=== PATIENT | female | born 1950 | race Caucasian/White ===

== ENCOUNTER 2018-11-25 11:23 | Emergency (ER) | payer OTHER ==
[2018-11-25 11:30] VITALS: BMI 34.3
--- NOTE | 2018-11-25 11:30 | PDOC ---
Rapid Medical Evaluation Medical Evaluation: I have performed a brief in-person evaluation of this patient. The patient presents with a chief complaint of: s/p tripped and fell doing down stairs; fell down 4 steps; +head strike, no LOC; +bloody nose at the time; denies vomiting, visual/gait changes; patient is not on any blood thinners Pertinent physical exam findings: +hematoma to R forehead; bruising above R eye and below L eye, FROM, no nystagmus, no pain on eye movement; denies diplopia; no c-spine tenderness; +small bruise L thumb I have ordered the following: CT head/facial; xray The patient will proceed to the ED for further evaluation. 11/25/18 11:25
[2018-11-25] MEDS ORDERED: ACETAMINOPHEN 500 MG TABLET (FP) PO ONE (12:01)
--- NOTE | 2018-11-25 12:02 | PDOC ---
History of Present Illness - General Chief Complaint: Injury Stated Complaint: FALL Time Seen by Provider: 11/25/18 11:25 History Source: Patient Exam Limitations: No Limitations - History of Present Illness Initial Comments: 11/25/18 12:15 CHIEF COMPLAINT: Fall HISTORY OF PRESENT ILLNESS: This is a 68-year-old female with a history of NIDDM , HTN, and HLD on no AC meds who presents with her daughters following a fall down 4 steps with head trauma. She reports that she missed a step and fell and denies dizziness or any other prodrome prior to the fall. She denies LOC. She reports some headache, facial pain, and blurred vision when looking upwards. She has left thumb pain. She denies neck pain, back pain, nausea/vomiting, or any other symptoms. Vital signs on arrival are notable for BP 178/89. Surgical history: Left Colles' fracture s/p 8 surgeries REVIEW OF SYSTEMS: GENERAL/CONSTITUTIONAL: No fever or chills. No weakness. No weight change. HEAD, EYES, EARS, NOSE AND THROAT: Blurred vision right eye only when looking up . No ear pain or discharge. No sore throat. CARDIOVASCULAR: No chest pain or palpitations. RESPIRATORY: No cough, wheezing, or shortness of breath. GASTROINTESTINAL: No nausea, vomiting, diarrhea, or constipation. GENITOURINARY: See HPI. MUSCULOSKELETAL: Left thumb pain. No neck or back pain. SKIN: No rash or easy bruising. NEUROLOGIC: Headache. No vertigo, loss of consciousness, or loss of sensation. PSYCHIATRIC: No depression or anxiety. ENDOCRINE: No increased thirst. No abnormal weight change. HEMATOLOGIC/LYMPHATIC: No anemia, easy bleeding, or history of blood clots. No anticoagulant use. ALLERGIC/IMMUNOLOGIC: No hives or skin allergy. No latex allergy. PHYSICAL EXAM: GENERAL: The patient is awake, alert, and fully oriented, in no acute distress. HEAD: Hematoma and swelling right frontal scalp. Hematoma and swelling right supraorbital ridge, some tenderness inferior orbital bone. Small ecchymosis below left eye. ENT: Pupils equal, round and reactive to light, Extraocular movements intact; no ophthalmoplegia. Neck supple. LUNGS: Clear to auscultation bilaterally. Normal excursion. No respiratory distress or use of accessory muscles. CV: RRR, S1/S2, no MRG. Cap refill < 2 sec. ABDOMEN: Soft, non-tender, non-distended. EXTREMITIES: Normal range of motion, no edema. NEUROLOGICAL: Normal speech, normal gait with walker. CN II-XII grossly intact. PSYCH: Normal mood, normal affect. SKIN: Warm, dry, normal turgor, no rashes or lesions noted. Past History - Past Medical History Allergies/Adverse Reactions: Allergies Allergy/AdvReac Type Severity Reaction Status Date / Time No Known Allergies Allergy Verified 11/25/18 11:26 Home Medications: Ambulatory Orders Atorvastatin Calcium 10 mg PO DAILY 11/25/18 Buspirone HCl 15 mg PO DAILY 11/25/18 Gabapentin 300 mg PO DAILY 11/25/18 Glimepiride 1 mg PO DAILY 11/25/18 Metformin HCl [Glucophage] 1,000 mg PO DAILY 11/25/18 Ramipril 2.5 mg PO DAILY 11/25/18 Sertraline HCl 100 mg PO DAILY 11/25/18 Spironolactone 25 mg PO DAILY 11/25/18 COPD: No Diabetes: Yes (NIDM) HTN: Yes Hypercholesterolemia: Yes - Surgical History Cholecystectomy: Yes - Immunization History Immunization Up to Date: Yes - Suicide/Smoking/Psychosocial Hx Smoking History: Never smoked Information on smoking cessation initiated: No Hx Alcohol Use: No Drug/Substance Use Hx: No *Physical Exam - Vital Signs Last Vital Signs Temp Pulse Resp BP Pulse Ox 98.5 F 84 17 178/89 H 100 11/25/18 11:27 11/25/18 11:27 11/25/18 11:27 11/25/18 11:27 11/25/18 11:27 ED Treatment Course - LABORATORY CBC & Chemistry Diagram: 11/25/18 13:40 11/25/18 13:40 - RADIOLOGY Radiology Studies Ordered: Category Date Time Status CERVICAL SPINE CT W/O CONTR [CT] Stat CT Scan 11/25/18 12:01 Ordered Medical Decision Making - Critical Care Time Total Critical Care Time (minutes): 45 Critical Care Statement: The care of this patient involved high complexity decision making to prevent further life threatening deterioration of the patient 's condition and/or to evaluate & treat vital organ system(s) failure or risk of failure. - Medical Decision Making 11/25/18 12:21 A/P: 68-year-old female with head injury s/p fall. 1. Tylenol for pain 2. CT brain, facial bones, cervical spine 3. Left hand xray 4. Re-evaluate 11/25/18 13:58 CTs reviewed with radiologist: traumatic subarachnoid and subdural hemorrhages, multiple orbital fractures. Discussed with Dr. Garcia, recommends transfer. Repeat neurologic exam is normal. Discussed diagnosis and need for urgent neurosurgical and OMFS specialty evaluation with patient and [id number] and daughter at bedside and they consent to transfer. Accepted for transfer to [facility] (family preference) by neurosurgeon Dr. Dickerson. 11/25/18 14:10 Repeat neuro exam is normal, right orbital swelling is increased. Repeat BP is 145/87, Cardene drip ordered as needed to keep SBP <160 but will not start at this time. Keppra 500mg IVPB load given per neurosurg recs. *DC/Admit/Observation/Transfer Diagnosis at time of Disposition: Subarachnoid bleed, Traumatic subarachnoid hemorrhage - Discharge Dispostion Disposition: TRANSFER ACUTE CARE/OTHER HOSP - Referrals - Patient Instructions - Post Discharge Activity - Transfer to Acute Care Facility Receiving Facility: [facility]. Accepting Physician:: Trudy
[2018-11-25] MEDS ORDERED: ACETAMINOPHEN 325 MG TABLET (FP) ONE (12:25)
[2018-11-25] MEDS ORDERED: NICARDIPINE 25 MG in DEXTROSE 5%-WATER - 240 ML IVPB SCH (13:45)
[2018-11-25 13:48] LABS: BASO % 0.3 % (0-2.0); EOS % 1.1 % (0-4.5); HEMATOCRIT 43.5 % (32.4-45.2); HEMOGLOBIN 14.5 GM/dL (10.7-15.3); LYMPH % 11.3 % (8-40); MCH 30.3 pg (25.7-33.7); MCHC 33.3 g/dl (32.0-36.0); MEAN CELL VOLUME 91.2 fl (80-96); MEAN PLT VOLUME 9.6 fl (7.5-11.1); MONO % 6.5 % (3.8-10.2); NEUT % 80.8 % (42.8-82.8); PLATELET COUNT 198 K/MM3 (134-434); RBC 4.78 M/mm3 (3.60-5.2); RDW 13.9 % (11.6-15.6); WHITE BLOOD COUNT 12.5 K/mm3 (4.0-10.0)
[2018-11-25] MEDS ORDERED: levETIRAcetam 500 MG/5 ML INJECTION VIAL IVPB ONE ×2 (13:53→14:27)
[2018-11-25] MEDS ORDERED: morphine CARPU-JECT 4 MG/1 ML DISP.SYRIN IVPUSH ONE (13:59)
[2018-11-25 14:02] LABS: INR 1.1 (0.83-1.09)
[2018-11-25 14:14] LABS: ALBUMIN 3.8 g/dl (3.4-5.0); BILIRUBIN,TOTAL 0.7 mg/dL (0.2-1); BLOOD UREA NITROGEN 14.4 mg/dL (7-18); CALCIUM 9.5 mg/dL (8.5-10.1); CREATININE 0.5 mg/dL (0.55-1.3); POTASSIUM 4.6 mmol/L (3.5-5.1); TOT PROT 7.1 g/dl (6.4-8.2)
--- NOTE | 2018-11-25 14:23 | PDOC ---
*Physical Exam - Vital Signs Last Vital Signs Temp Pulse Resp BP Pulse Ox 98.5 F 85 17 143/65 100 11/25/18 11:27 11/25/18 13:21 11/25/18 11:27 11/25/18 13:21 11/25/18 11:27 ED Treatment Course - LABORATORY CBC & Chemistry Diagram: 11/25/18 13:40 11/25/18 13:40 - ADDITIONAL ORDERS Additional order review: Laboratory Results 11/25/18 11/25/18 13:40 13:40 PT with INR 13.00 INR 1.10 H Sodium 138 Potassium 4.6 Chloride 106 Carbon Dioxide 24 Anion Gap 9 BUN 14.4 Creatinine 0.5 L Est GFR (CKD-EPI)AfAm 116.07 Est GFR (CKD-EPI)NonAf 100.15 Random Glucose 158 H Calcium 9.5 Total Bilirubin 0.7 AST 47 H ALT 35 Alkaline Phosphatase 85 Total Protein 7.1 Albumin 3.8 11/25/18 13:40 RBC 4.78 MCV 91.2 MCHC 33.3 RDW 13.9 MPV 9.6 Neutrophils % 80.8 Lymphocytes % 11.3 Monocytes % 6.5 Eosinophils % 1.1 Basophils % 0.3 - Medications Given in the ED: ED Medications Discontinued Medications Generic Name Dose Route Start Last Admin Trade Name Freq PRN Reason Stop Dose Admin Acetaminophen 975 mg 11/25/18 12:01 11/25/18 12:31 Tylenol - PO 11/25/18 12:02 975 mg ONCE ONE Administration Medical Decision Making - Critical Care Time Total Critical Care Time (minutes): 60 Critical Care Statement: The care of this patient involved high complexity decision making to prevent further life threatening deterioration of the patient 's condition and/or to evaluate & treat vital organ system(s) failure or risk of failure. - Medical Decision Making 11/25/18 14:20 Pt seen by the Advanced Practice Provider under my direct supervision I also evaluated pt Ancillary studies reviewed Pt had fall down 4 stairs, CT with SDH, SAH blood, facial fracture BP well controlled with cardene gtt head of bed 30 degrees Case discussed with NSG Dr. Garcia, recommends transfer for OMFS/NSG evaluation Pt accepted for transfer to [facility]. Plan/results discussed with patient, consents for transfer I agree with plan as outlined by the Advanced Practice Provider *DC/Admit/Observation/Transfer Diagnosis at time of Disposition: Subarachnoid bleed, Traumatic subarachnoid hemorrhage - Discharge Dispostion Disposition: TRANSFER ACUTE CARE/OTHER HOSP - Referrals - Patient Instructions - Post Discharge Activity
[2018-11-25] MEDS ORDERED: morphine SULFATE 4 MG/ML VIAL ONE (14:28)
[2018-11-25 15:46] VITALS: BP 145/70; PULSE 84; TEMP 98.1
--- NOTE | 2018-11-26 23:51 | EKG ---
Test Reason : Blood Pressure : / mmHG Vent. Rate : 090 BPM Atrial Rate : 090 BPM P-R Int : 148 ms QRS Dur : 090 ms QT Int : 390 ms P-R-T Axes : -05 -26 046 degrees QTc Int : 477 ms NORMAL SINUS RHYTHM LEFT VENTRICULAR HYPERTROPHY WITH REPOLARIZATION ABNORMALITY ABNORMAL ECG NO PREVIOUS ECGS AVAILABLE Confirmed by RIP JENSEN MD ([id number]) on 11/26/2018 11:51:25 PM Referred By: Confirmed By:RIP JENSEN MD
== END 2018-11-25 16:07 | disposition short-term general hospital (02) ==
LOC: JER 11:23
PROC: 3E033NZ Introduction of Analgesics, Hypnotics, Sedatives into Peripheral Vein, Percutaneous Approach (ICD-10-PCS; principal; 2018-11-25)
PROC: 3E033GC Introduction of Other Therapeutic Substance into Peripheral Vein, Percutaneous Approach (ICD-10-PCS; 2018-11-25)
DX: S06.6X0A Traumatic subarachnoid hemorrhage without loss of consciousness, initial encounter (principal); S06.5X0A Traumatic subdural hemorrhage without loss of consciousness, initial encounter; S02.81XA Fracture of other specified skull and facial bones, right side, initial encounter for closed fracture; W10.8XXA Fall (on) (from) other stairs and steps, initial encounter; Y93.89 Activity, other specified; Y92.038 Other place in apartment as the place of occurrence of the external cause; Y99.8 Other external cause status; M79.645 Pain in left finger(s); I10 Essential (primary) hypertension; E78.00 Pure hypercholesterolemia, unspecified; E11.9 Type 2 diabetes mellitus without complications; Z79.84 Long term (current) use of oral hypoglycemic drugs
CPT/HCPCS: 36415; 70450-TC; 70486-TC; 71045-TC-FY; 72125-TC; 73130-TC-LT-FY; 80053; 85025; 85610; 86850; 86900; 86901; 93005; 93010; 99285-25